=== PATIENT | female | born 1995 | race Caucasian/White ===

== ENCOUNTER 2018-01-21 14:00 | Outpatient (CLI) | payer BC ==
--- NOTE | 2018-01-21 15:51 | ULT ---
TRANSABDOMINAL AND TRANSVAGINAL PELVIC ULTRASOUND: 01/21/18 HISTORY: Pelvic pain. IUD placement. FINDINGS: The uterus measures 7.4 x 2.7 x 4 cm. The endometrium measures 9 mm in thickness. There is echogenic shadowing areas within the endometrial cavity likely representing the IUD. The ovaries are not visualized. There is no free fluid in the cul-de-sac. No adnexal mass is seen. IMPRESSION: Probable IUD in the endometrial cavity. POS: [id number]
== END 2018-01-21 14:01 | disposition home or self-care (01) ==
LOC: SCSULT 14:00
PROVIDERS: ATTEND Family Medicine
DX: R10.2 Pelvic and perineal pain (principal)
CPT/HCPCS: 76856; 76857